=== PATIENT | female | born 1965 | race Two or more races ===

== ENCOUNTER 2018-01-10 19:11 | Emergency (ER) | payer MEDICAID, OTHER ==
[~2018-01-10] VITALS: Ht 162.6 cm; Wt 104.6 kg
[2018-01-10 19:31] VITALS: BP 199/115
[2018-01-10] MEDS ORDERED: TETANUS, DIPHTHERIA, PERTUSSIS VAC/PF 0.5ML (>7YR OLD) IM ONE (21:30)
== END 2018-01-10 22:00 | disposition home or self-care (01) ==
LOC: ER 21:18
DX: S91.052A Open bite, left ankle, initial encounter (principal); S71.151A Open bite, right thigh, initial encounter; S31.159A Open bite of abdominal wall, unspecified quadrant without penetration into peritoneal cavity, initial encounter; I10 Essential (primary) hypertension; F17.200 Nicotine dependence, unspecified, uncomplicated; W53.11XA Bitten by rat, initial encounter; Y93.89 Activity, other specified; Y92.89 Other specified places as the place of occurrence of the external cause; Y99.8 Other external cause status
CPT/HCPCS: 90471; 90715; 99283; Z7610

== ENCOUNTER 2020-08-05 16:02 | Emergency (ER) | payer MEDICAID ==
[~2020-08-05] VITALS: Ht 162.6 cm; Wt 81.0 kg
[2020-08-05] MEDS ORDERED: CEPHALEXIN 250MG CAPSULE PO ONE (18:15)
[2020-08-05] MEDS ORDERED: ACETAMINOPHEN 325MG TABLET PO ONE (18:15)
[2020-08-05] MEDS ORDERED: IBUPROFEN 600MG TABLET PO ONE (20:15)
[2020-08-05 22:00] VITALS: BP 147/74
== END 2020-08-05 22:11 | disposition home or self-care (01) ==
LOC: ER 16:02
DX: T14.8XXA Other injury of unspecified body region, initial encounter (principal); I10 Essential (primary) hypertension; Z98.890 Other specified postprocedural states; V49.9XXA Car occupant (driver) (passenger) injured in unspecified traffic accident, initial encounter; Y93.89 Activity, other specified; Y92.89 Other specified places as the place of occurrence of the external cause; Y99.8 Other external cause status
CPT/HCPCS: 71045; 99285